=== PATIENT | female | born 1970 | race Caucasian/White ===

== ENCOUNTER 2017-04-05 15:39 | Emergency (ER) | payer MEDICAID | END 2017-04-05 16:50 | disposition home or self-care (01) | LOC: E/R 15:39 | DX: R05 Cough (principal) | CPT/HCPCS: 99284; Z7502 ==

== ENCOUNTER 2017-05-25 06:06 | Emergency (ER) | payer MEDICAID ==
[2017-05-25] MEDS: ACETAMINOPHEN 500 MG TAB PO (06:49)
[2017-05-25] MEDS: IBUPROFEN 600 MG TAB PO (06:49)
[2017-05-25 07:00] LABS: URINE BLOOD (Dip) POC 1+ (NEGATIVE); URINE GLUCOSE (Dip) POC Negative (NEGATIVE); URINE KETONES (Dip) POC Negative (NEGATIVE); URINE LEUKOCYTE EST (Dip) POC Negative (NEGATIVE); URINE NITRITE (Dip) POC Negative (NEGATIVE); URINE TOTAL PROTEIN POC Negative (NEGATIVE)
[2017-05-25 07:00] LABS: URINE PH (Dip) POC 8.5 (5.0-8.5)
== END 2017-05-25 08:00 | disposition home or self-care (01) ==
LOC: FTE 06:06
DX: J11.1 Influenza due to unidentified influenza virus with other respiratory manifestations (principal); I10 Essential (primary) hypertension
CPT/HCPCS: 71045; 81003; 99284-25

== ENCOUNTER 2017-11-28 18:57 | Emergency (ER) | payer MEDICAID | END 2017-11-28 22:10 | disposition home or self-care (01) | LOC: FTE 18:57 | DX: M25.561 Pain in right knee (principal); I10 Essential (primary) hypertension | CPT/HCPCS: 73564; 99283-25 ==